=== PATIENT | male | born 2000 | race Hispanic/Latino ===

== ENCOUNTER 2022-06-20 06:07 | Day surgery (SDC) | payer MEDICAID ==
[2022-06-19 16:38] VITALS: BP 97/55
[2022-06-19 16:38] LABS: BASOPHILS % (AUTO) 0.6 % (0.0-5.0); EOSINOPHILS % (AUTO) 1.6 % (0.0-8.0); HEMATOCRIT 44.8 % (42-54); LYMPHOCYTES % (AUTO) 41.1 % (21.0-51.0); MEAN CORPUSCULAR HEMOGLOBIN 30.9 pg (27.0-33.0); MEAN CORPUSCULAR HGB CONC 33.5 g/dL (32.0-36.0); MEAN CORPUSCULAR VOLUME 92.2 fL (80-100); MONOCYTES % (AUTO) 8.4 % (3.0-13.0); PLATELET COUNT (AUTO) 217 K/uL (130-400); RED BLOOD CELL COUNT(AUTO) 4.86 MIL/uL (4.50-6.20); RED CELL DISTRIBUTION WIDTH 11.7 % (11.0-15.5); WHITE BLOOD COUNT (AUTO) 7.9 K/uL (4.8-10.8)
[2022-06-19 16:45] LABS: POTASSIUM 4.2 mmol/L (3.5-5.1)
[~2022-06-20] VITALS: Ht 165.1 cm; Wt 99.3 kg
[2022-06-20] VITALS (17 sets, daily range): BP systolic 106–138; BP diastolic 57–87
[~2022-06-20 06:07] MED LIST: CEPH500C2 PO; IBUP-2070 PO
[2022-06-20] MEDS ORDERED: LACTATED RINGERS 1000ML 1,000 ML IV ONE (06:56)
[2022-06-20] MEDS: CEFAZOLIN SODIUM 2 GM VIAL ONE ×2 (07:05→08:47)
[2022-06-20] MEDS ORDERED: DEXAMETHASONE SOD PHOSPHATE 10MG/ML 1ML VIAL ONE (08:09)
[2022-06-20] MEDS ORDERED: SUCCINYLCHOLINE CHLORIDE 20 MG/ML 10 ML VIAL ONE (08:09)
[2022-06-20] MEDS ORDERED: LIDOCAINE PF 100MG/5ML (2%) SYRINGE 5ML ONE (08:09)
[2022-06-20] MEDS ORDERED: ROCURONIUM 10MG/1ML SYR 10 MG/ML ML ONE (08:10)
[2022-06-20] MEDS ORDERED: FENTANYL CITRATE PF 50 MCG/1 ML 2ML VIAL ONE ×2 (08:10→09:05)
[2022-06-20] MEDS ORDERED: ONDANSETRON 4MG INJ ONE ×2 (08:10→09:46)
[2022-06-20] MEDS ORDERED: MIDAZOLAM HCL 1 MG/ML 2ML VIAL ONE (08:10)
[2022-06-20] MEDS ORDERED: NEOSTIGMINE 5MG/5ML SYR IV ONE (08:10)
[2022-06-20] MEDS ORDERED: PROPOFOL 10 MG/ML 20ML VIAL IV ONE (08:10)
[2022-06-20] MEDS ORDERED: GLYCOPYRROLATE 1 MG/5 ML SYRINGE ONE (08:10)
[2022-06-20] MEDS ORDERED: KETOROLAC 30MG VIAL (30MG/ML) ONE (09:46)
[2022-06-20] MEDS ORDERED: MEPERIDINE-PF 25 MG/ML SYG ONE (09:47)
== END 2022-06-20 12:20 | disposition home or self-care (01) ==
LOC: DAH 06:07
PROVIDERS: ATTEND Orthopaedic Surgery
DX: M79.5 Residual foreign body in soft tissue (principal); Z20.822 Contact with and (suspected) exposure to COVID-19; E66.9 Obesity, unspecified; Z68.35 Body mass index [BMI] 35.0-35.9, adult; Z90.49 Acquired absence of other specified parts of digestive tract; X58.XXXA Exposure to other specified factors, initial encounter; Y93.89 Activity, other specified; Y92.89 Other specified places as the place of occurrence of the external cause
CPT/HCPCS: 80048; 85025; 87426; 36415; 20525; 88300; 77002; 73140; A6260; A4663; A4649 ×2; J7120; J3010 ×2; J3490 ×3; J1100; J2710; J0330; J2250; J2405 ×2; J1885; J2175; J0690; A6223; A6446; A5120; A4215; A4223; A4222; A4221; J2001; J2704